=== PATIENT | female | born 1975 | race Caucasian/White ===

== ENCOUNTER 2019-04-28 18:07 | Emergency (ER) | payer OTHER ==
[~2019-04-28] VITALS: Ht 160 cm; Wt 135.8 kg
[2019-04-28] MEDS ORDERED: HYDR-3165 PO (19:51)
[2019-04-28] MEDS ORDERED: PRED-220 PO (19:51)
[2019-04-28] MEDS ORDERED: CYCL-331 PO (19:51)
--- NOTE | 2019-04-28 19:51 | PHYS DOC ---
Past History Past Medical History: No Pertinent History Past Surgical History: Cholecystectomy Alcohol Use: Occasionally Drug Use: None Adult General Chief Complaint Chief Complaint: BACK PAIN OR INJURY [facility] HPI 43-year-old female presents with left low back pain. The patient slipped on some grease at work about 2 weeks ago and strained her low back. She does not show pulled muscle so she's been treated with NSAIDs and heat. It seems to be getting worse. She now has pain with walking on uneven ground. Pain is a deep cramping sensation moderate to severe. It is intermittent and worse with activity. Her worst pain is walking downstairs. He continues to be on the left side that radiates across to the right. She denies numbness or tingling. She presents tonight has she is not sure what else to do for the pain. Review of Systems Review of Systems Constitutional: Denies fever or chills [] Eyes: Denies change in visual acuity, redness, or eye pain [] HENT: Denies nasal congestion or sore throat [] Respiratory: Denies cough or shortness of breath [] Cardiovascular: No additional information not addressed in HPI [] GI: Denies abdominal pain, nausea, vomiting, bloody stools or diarrhea [] : Denies dysuria or hematuria [] Musculoskeletal: Left low back pain[] Integument: Denies rash or skin lesions [] Neurologic: Denies headache, focal weakness or sensory changes [] Endocrine: Denies polyuria or polydipsia [] All other systems were reviewed and found to be within normal limits, except as documented in this note. Allergies Allergies Allergies Coded Allergies Type Severity Reaction Last Updated Verified bee venom protein (honey bee) Allergy Unknown 04/28/19 Yes Physical Exam Physical Exam Constitutional: Well developed, morbidly obese, well nourished, no acute distress, non-toxic appearance. [] HENT: Normocephalic, atraumatic, bilateral external ears normal, oropharynx moist, no oral exudates, nose normal. [] Eyes: PERRLA, EOMI, conjunctiva normal, no discharge. [] Neck: Normal range of motion, no tenderness, supple, no stridor. [] Cardiovascular:Heart rate regular rhythm, no murmur [] Lungs & Thorax: Bilateral breath sounds clear to auscultation [] Abdomen: Bowel sounds normal, soft, no tenderness, no masses, no pulsatile masses. [] Skin: Warm, dry, no erythema, no rash. [] Back: Moderate tenderness over the left sacroiliac joint with surrounding muscle spasm.[] Extremities: No tenderness, no cyanosis, no clubbing, ROM intact, no edema. [] Neurologic: Alert and oriented X 3, normal motor function, normal sensory function, no focal deficits noted. [] Psychologic: Affect normal, judgement normal, mood normal. [] Current Patient Data Vital Signs Vital Signs Date Time Temp Pulse Resp B/P (MAP) Pulse Ox O2 Delivery O2 Flow Rate FiO2 04/28/19 18:07 98.1 99 96 EKG EKG [] Radiology/Procedures Radiology/Procedures [] Course & Med Decision Making Course & Med Decision Making Pertinent Labs and Imaging studies reviewed. (See chart for details) Patient appears to have a strain sacroiliac joint on the left. I will treat her with prednisone, [place] 11/22/24, and Flexeril. I also advised that she discuss being seen by physical therapy. This is a worker's comp case. I will give her first dose of prednisone, [place], and Flexeril in the ED. She is stable for discharge at this time. [] Dragon Disclaimer Dragon Disclaimer This electronic medical record was generated, in whole or in part, using a voice recognition dictation system. Departure Departure: Impression: Primary Impression: Sacroiliac joint dysfunction of left side Disposition: HOME, SELF-CARE Condition: STABLE Referrals: SARAH DELGADO (PCP) Patient Instructions: Sacroiliac Joint Dysfunction Scripts Cyclobenzaprine Hcl (CYCLOBENZAPRINE HCL) 10 Mg Tablet 1 TAB PO TID PRN for MUSCLE SPASMS, #30 TAB Prov: DARIO IBARRA DO 04/28/19 Prednisone (PREDNISONE) 10 Mg Tablet 50 MG PO DAILY for sacroiliitis for 4 Days, #20 TAB Prov: DARIO IBARRA DO 04/28/19 Hydrocodone Bit/Acetaminophen (NORCO 5-325 TABLET) 1 Each Tablet 1 TAB PO PRN Q6HRS PRN for PAIN, #10 TAB 0 Refills Prov: DARIO IBARRA DO 04/28/19 DARIO IBARRA DO Apr 28, 2019 19:51
[2019-04-28] MEDS ORDERED: CYCLOBENZAPRINE 10 MG TABLET. PO ONE (20:00)
[2019-04-28 20:10] VITALS: BP 152/95
[2019-04-28] MEDS ORDERED: HYDROcodone/APAP 5/325MG 1 TAB TABLET PO ONE (20:15)
[2019-04-28] MEDS ORDERED: predniSONE 10 MG TABLET PO ONE (20:15)
== END 2019-04-28 20:10 | disposition home or self-care (01) ==
LOC: ER 18:07
DX: M53.3 Sacrococcygeal disorders, not elsewhere classified (principal); M54.5 Low back pain; Z90.49 Acquired absence of other specified parts of digestive tract; Z91.030 Bee allergy status
CPT/HCPCS: 99284; J7512